=== PATIENT | female | born 1975 | race African-American/Black ===

== ENCOUNTER 2017-05-19 21:13 | Emergency (ER) | payer MEDICAID ==
[2012-04-24 11:19] VITALS: BMI 25.0
== END 2017-05-19 22:44 | disposition home or self-care (01) ==
LOC: D.ER 21:13
DX: S01.01XA Laceration without foreign body of scalp, initial encounter (principal); Y04.2XXA Assault by strike against or bumped into by another person, initial encounter; Y93.89 Activity, other specified; Y92.029 Unspecified place in mobile home as the place of occurrence of the external cause

== ENCOUNTER 2019-04-14 09:04 | Emergency (ER) | payer SELFPAY ==
[~2019-04-14] VITALS: Ht 170.2 cm; Wt 77.3 kg
[2019-04-14 09:12] VITALS: Ht 170.2 cm; Wt 77.3 kg
[2019-04-14 10:09] LABS: BASOPHILS 0.8 % (0-2); EOSINOPHILS 3.7 % (0-7); HEMATOCRIT 30.5 % (36.0-48.0); HEMOGLOBIN 9.4 g/dL (12-16); MCH 23.2 pg (26.0-34.0); MCHC 30.8 g/dL (31.0-37.0); MCV 75.3 fL (80.0-100.0); MEAN PLATELET VOLUME 9.2 fL (7.4-10.4); MONOCYTES 11.5 % (2-11); PLATELET COUNT 261 10x3/uL (130-400); RBC 4.05 10x6/uL (4.00-5.40); RDW 16.5 % (11.5-14.5); WBC 3.8 10x3/uL (4.8-10.8)
[2019-04-14 10:21] LABS: HCG SERUM NEGATIVE (NEGATIVE)
[2019-04-14 10:24] LABS: ALBUMIN 3.6 g/dL (3.4-5.0); ALKALINE PHOSPHATASE 69 U/L (46-116); ALT (SGPT) 19 U/L (10-68); BILIRUBIN - TOTAL 0.13 mg/dL (0.2-1.3); CALC OSMOLALITY 281 mosm/kg (275-300); CALCIUM 8.9 mg/dL (8.5-10.1); CARBON DIOXIDE 27.3 mmol/L (21.0-32.0); CHLORIDE - SERUM 105 mmol/L (98-107); CREATININE - SERUM 0.8 mg/dL (0.6-1.3); GLUCOSE 86 mg/dL (74-106); POTASSIUM - SERUM 4.2 mmol/L (3.5-5.1); PROTEIN - SERUM 7.9 g/dL (6.4-8.2); SODIUM 142 mmol/L (136-145); UREA NITROGEN 13 mg/dL (7-18); eGFR NON AFRICAN AMERICAN 83 mL/min (90-120)
[2019-04-14 11:07] LABS: APPEARANCE CLEAR (CLEAR); BILIRUBIN NEGATIVE (NEGATIVE); COLOR YELLOW (YELLOW); EPITHELIAL CELLS 0-5 /hpf (0-5); GLUCOSE NEGATIVE (NEGATIVE); KETONE NEGATIVE (NEGATIVE); NITRITE NEGATIVE (NEGATIVE); PROTEIN NEGATIVE (NEGATIVE); RED CELLS - URINE 0-5 /hpf (0-5); SPECIFIC GRAVITY 1.015 (1.005-1.020); UROBILINOGEN NORMAL (NORMAL); WHITE CELLS - URINE RARE /hpf (0-5)
[2019-04-14 11:08] LABS: BACTERIA MODERATE /hpf (NONE SEEN); MUCUS <1+ /lpf (NONE SEEN)
[2019-04-14] MEDS ORDERED: EC-NAPROSYN500 MG PO (14:06)
[2019-04-14 14:27] VITALS: BP 140/86
== END 2019-04-14 14:29 | disposition home or self-care (01) ==
LOC: D.ER 09:04
PROVIDERS: Family Medicine
DX: D25.9 Leiomyoma of uterus, unspecified (principal)